=== PATIENT | female | born 1955 | race Caucasian/White ===

== ENCOUNTER 2020-01-29 07:20 | Outpatient (CLI) | payer MEDICARE, SELFPAY ==
--- NOTE | 2020-02-05 11:19 | WPDPFTINT ---
PFT Interpretation PFT Interpretation: This PFT met all criteria for ATS standards and reproducibility FEV/FVC 67% FEV1 89% FVC 96% No bronchodilator challenge was given TLC 124% RV 136% RV/TLC 43% DLCO 51% when adjusted for alveolar volume but not adjusted for hemoglobin Flow volume loops showed appeared normal Impression: Interpretability is limited due to lack of bronchodilator challenge. Mild airflow obstruction with hyperinflation, air trapping and moderately reduced diffusion capacity. This pattern is suggestive of COPD. Clinical correlation is advised.
== END 2020-01-29 07:21 | disposition home or self-care (01) ==
PROVIDERS: PCP Family Medicine; Visit Provider Internal Medicine Cardiovascular Disease
DX: R06.00 Dyspnea, unspecified (principal); Z72.0 Tobacco use
CPT/HCPCS: 94375; 94726; 94729

== ENCOUNTER → 2020-03-10 08:58 | Outpatient (CLI) | payer MEDICARE, SELFPAY ==
--- NOTE | ~2020-03-10 | XR_ITS ---
EXAMINATION: XR abdomen/kub 1V DATE: 03/10/2020 09:23 INDICATION: Hematuria. TECHNIQUE: A supine view of the abdomen on 2 radiographs was obtained. COMPARISON: CT abdomen and pelvis 03/10/2020 FINDINGS: There are no dilated loops of bowel. There are phleboliths in the pelvis. IMPRESSION: 1. No urolithiasis. Reviewed, dictated and finalized at location B. 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 No urolithiasis.
--- NOTE | ~2020-03-10 | CT_ITS ---
EXAMINATION: CT abdomen pelvis wo/w con DATE: 03/10/2020 10:01 INDICATION: Microscopic hematuria. TECHNIQUE: Computed tomography (CT) of the abdomen and pelvis was performed without and with intraven ous contrast using a total of 130 mL Omnipaque-350 intravenous contrast with a double-bolus technique for simultaneous opacification of the renal parenchyma and renal collecting system. Automated exposu re control and iterative reconstruction technique were employed. The dose-length product was 1147.97 mGy-cm. COMPARISON: None FINDINGS: The visualized portions of the lung bases demonstrate mild atelectasis. No pleural effusion. The hear t size is normal. There are small calcifications of the pericardium. No pericardial effusion. The amisha er, gallbladder, spleen, pancreas, and adrenal glands are normal. There is a 6 mm cyst in right kidne y. There are cysts in left kidney measuring up to 7 mm. There is no urolithiasis. There is partial du plication of right ureter, which is not well opacified distally, but is normal. The left ureter is no t well opacified proximally, but is normal. The bladder is normal. There is diverticulosis of the col on without evidence of diverticulitis. There are no dilated loops of bowel. There are no pathological ly enlarged lymph nodes. There is no free intraperitoneal fluid. There is severe thoracic spondylosis and mild lumbar spondylosis. Thoracolumbar levoscoliosis is noted. IMPRESSION: 1. No etiology for hematuria. Reviewed, dictated and finalized at location B. 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
[2020-03-10 09:37] LABS: Estimated Glomerular Filt Rate > 60
== END ==
PROVIDERS: PCP Family Medicine; Visit Provider Urology
DX: R31.29 Other microscopic hematuria (principal)
CPT/HCPCS: 74018; 74178; Q9967

== ENCOUNTER 2020-05-10 07:54 | Outpatient (CLI) | payer MEDICARE, SELFPAY ==
[2020-05-10 08:50] VITALS: PULSE 84; O2SAT 99
[2020-05-10 08:52] VITALS: PULSE 101; O2SAT 97
[2020-05-10 08:53] VITALS: PULSE 106; O2SAT 96
[2020-05-10 08:54] VITALS: PULSE 112; O2SAT 95
[2020-05-10 08:55] VITALS: PULSE 107; O2SAT 93
--- NOTE | 2020-05-10 09:01 | HOMEO2EVAL ---
Home Oxygen Evaluation RC: Home Oxygen (O2) Evaluation Start: 05/10/20 08:57 Freq: Status: Active Protocol: RPE Activity Type Activity Date Activity User E-Sign Co-Sign Detail Recorded Client Recorded Date Recorded By Document 05/10/20 08:50 KRM [id number] 05/10/20 09:01 KRM Document 05/10/20 08:52 KRM [email or web address] 05/10/20 09:01 KRM Document 05/10/20 08:53 KRM [email or web address] 05/10/20 09:01 KRM Document 05/10/20 08:54 KRM [email or web address] 05/10/20 09:01 KRM Document 05/10/20 08:55 KRM [email or web address] 05/10/20 09:01 KRM 05/10/20 05/10/20 05/10/20 08:50 08:52 08:53 Home O2 Evaluation Test Phase Resting Exercise Exercise Oxygen Delivery Room Air Room Air Room Air Pulse Oximetry (90-100 %) 99 97 96 Pulse Rate (60-100 beats/min) 84 101 H 106 H Activity Tolerance Good Good Ambulation Distance (feet) Treatment Charges O2 Evaluation - Outpatient 05/10/20 05/10/20 08:54 08:55 Home O2 Evaluation Test Phase Exercise Exercise Oxygen Delivery Room Air Room Air Pulse Oximetry (90-100 %) 95 93 Pulse Rate (60-100 beats/min) 112 H 107 H Activity Tolerance Good Good Ambulation Distance (feet) 600 Treatment Charges
== END 2020-05-10 07:55 | disposition home or self-care (01) ==
PROVIDERS: PCP Family Medicine; Visit Provider Internal Medicine Pulmonary Disease
DX: J44.9 Chronic obstructive pulmonary disease, unspecified (principal)
CPT/HCPCS: 94618

== ENCOUNTER 2020-05-18 09:26 | Outpatient (CLI) | payer MEDICARE, SELFPAY ==
--- NOTE | ~2020-05-18 | CT_ITS ---
EXAMINATION: CT lung screening DATE: 05/18/2020 09:40 INDICATION: Personal history of nicotine dependence TECHNIQUE: Computed tomography (CT) of the chest was performed without intravenous contrast. The dose -length product was 82.83 mGy-cm. Automated exposure control and iterative reconstruction technique w ere employed. COMPARISON: No prior studies for comparison. FINDINGS: There is atherosclerosis of the aorta and coronary arteries. No significant pleural or jazlyn cardial effusion. No thoracic lymphadenopathy. Heart size is normal. Upper abdomen is unremarkable. C alcified granuloma left upper lung zone. Calcified granuloma right lower lobe. No focal airspace cons olidation. No pneumothorax. There is a 2 mm right upper lobe nodule, image 33. There is a 3 mm left u pper lobe nodule. IMPRESSION: 1. Lung-RADS category 2: Benign appearance or behavior. Continue annual screening with noncontrast lo w-dose chest CT in 12 months. Reviewed, dictated and finalized at location B. IMPRESSION: 1. Lung-RADS category 2: Benign appearance or behavior. Continue annual screeni ng with noncontrast low-dose chest CT in 12 months.
== END 2020-05-18 09:27 | disposition home or self-care (01) ==
PROVIDERS: PCP Family Medicine; Visit Provider Internal Medicine Pulmonary Disease
DX: Z12.2 Encounter for screening for malignant neoplasm of respiratory organs (principal); Z87.891 Personal history of nicotine dependence
CPT/HCPCS: 71271

== ENCOUNTER 2020-10-08 07:23 | Outpatient (CLI) | payer MEDICARE, SELFPAY ==
--- NOTE | 2020-11-03 12:59 | WPDHOMESLEEP ---
Sleep Study - Home Unattended Date of Study: 10/08/20 Ordering Provider: Gale Quintana MD Interpreting Provider: Gale Quintana MD Home Sleep Study Type: Apnea Link Air Height: 1.57 m Weight: 56.699 kg Body Mass Index: 22.8 Neck Circumference (inches): 13.5 [place]: 5 Reason for Sleep Study Difficulty falling asleep, multiple nighttime awakenings Sleep History Marva Bingham is a 65-year-old female who rarely awakens from sleep feeling short of breath. She rarely awakens at night with heartburn, belching or coughing. She frequently snores occasionally loudly enough that others complain about it. She constantly has trouble sleeping with a cold. She rarely wakes up gasping for breath at night. She occasionally has breathing problems at night observed by others. She occasionally sweats excessively at night and notices her heart pounding irregularly at night. She occasionally falls asleep during the day, never involuntarily never while driving. She does not have loss of muscle tone with strong emotion. She does not have daytime difficulties due to excessive sleepiness. She does not feel paralyzed on waking or falling asleep. She occasionally has vivid dreamlike scenes upon awakening or falling asleep. She never is afraid to go to sleep. She occasionally has nightmares, occasionally remembers her dreams. She frequently has racing thoughts. She does not feel sad depressed or anxious. She occasionally has muscular tension. She occasionally notices parts of her body jerking and she occasionally kicks at night. She occasionally has crawling and aching feelings in her legs. She occasionally has leg pain at night. She does not have morning jaw pain. She rarely grinds her teeth during sleep. She constantly is bothered by pain during the day, frequently wakes up for pain during the night. She frequently wakes up feeling stiff in the morning with sore achy muscles and pain in the neck and spine. She has fatigue. Normal bedtime is 10:00 p.m. taking at least 1 hour to fall asleep typically waking 4 times at night to use the bathroom and get a drink of water. She stays up because is difficult for her to fall asleep again. She wakes up 4 times during the night. Her morning wake up time is between 4:30 a.m. and 5:00 a.m.. On the weekends she goes to bed also at 10:00 p.m. but wakes between 6:00 a.m. and 7:00 a.m.. She tries to take naps during the afternoon or evening. A short nap may be refreshing. She is drowsy in the morning for 3 hours or longer. She feels better in the morning compared to other times of day. Habits: Tobacco 1 pack per day. Caffeine 1 cup a day. She drinks tea. No alcohol. No recreational drugs. [facility] Past Medical History Medical History Atrial fibrillation Bilateral plantar fasciitis Hair loss (~11/2017) Mitral valve stenosis Mitral valve stenosis and aortic valve insufficiency MVP (mitral valve prolapse) OAB (overactive bladder) Psoriasis Psoriatic arthritis Stroke (~2013) Vitamin D deficiency Surgical History Surgical History History of 1979 History of cardiac cath (~2014) History of tonsillectomy Hx of atrioventricular ben ablation 2014 Hx of mitral valve repair 1979 Family History Family History Father Carcinoma of colon Malignant neoplasm of prostate Social History Social History Smoking packs per day: 1 Smoking cigarettes per day: 20.0 Years smoked: 36 Smoking pack-years: 36.00 Smoking status: Current every day smoker Tobacco type: cigarettes Additional smoking assessment comments: consumes 1 pack of cigarettes daily Alcohol intake: never Substance use: never Substance use type: does not use Gender identity (if verbalize
[2020-11-03 14:57] VITALS: BMI 22.8
== END 2020-10-12 11:50 | disposition home or self-care (01) ==
LOC: ANHCSM 07:23
PROVIDERS: PCP Family Medicine; Visit Provider Internal Medicine Critical Care Medicine
DX: G47.33 Obstructive sleep apnea (adult) (pediatric) (principal)
CPT/HCPCS: 95806

== ENCOUNTER → 2020-12-04 07:43 | Outpatient (CLI) | payer MEDICARE, SELFPAY ==
--- NOTE | ~2020-12-04 | MR_ITS ---
EXAMINATION: MR cervical spine wo con DATE: 12/04/2020 08:29 INDICATION: Neck pain. TECHNIQUE: Magnetic resonance imaging (MRI) of the cervical spine was performed without intravenous c ontrast. Sequences included sagittal T2-weighted FSE, sagittal STIR FSE, sagittal T1-weighted FSE, ax ial MERGE, and axial T2-weighted FSE. COMPARISON: None FINDINGS: There is 2 mm retrolisthesis of C4 on C5 and C5 on C6. Vertebral body heights are normal. T here is mildly decreased disc height at C3-C4 and severely decreased disc height at C4-C5, C5-C6, and C6-C7. The spinal cord signal intensity is normal. The following disc levels are specifically discus sed: C2-C3: The disc does not extend beyond the endplate margin. There is no uncovertebral joint osteoarth ritis. There is mild bilateral facet joint osteoarthritis. There is no neural foraminal stenosis. The re is no central canal stenosis. C3-C4: The disc is bulging. There is mild bilateral uncovertebral joint osteoarthritis. There is no f acet joint osteoarthritis. There is mild bilateral neural foraminal stenosis. There is mild central c anal stenosis with ventral indentation of the spinal cord. C4-C5: The disc is bulging. There is severe bilateral uncovertebral joint osteoarthritis. There is no facet joint osteoarthritis. There is moderate right and mild left neural foraminal stenosis. There i s mild central canal stenosis with ventral indentation of the spinal cord. C5-C6: The disc is bulging. There is severe bilateral uncovertebral joint osteoarthritis. There is mi ld right and moderate left facet joint osteoarthritis. There is mild right and moderate left neural f oraminal stenosis. There is mild central canal stenosis. C6-C7: The disc is bulging. There is severe bilateral uncovertebral joint osteoarthritis. There is no facet joint osteoarthritis. There is mild bilateral neural foraminal stenosis. There is mild central canal stenosis. C7-T1: The disc does not extend beyond the endplate margin. There is no uncovertebral joint osteoarth ritis. There is mild bilateral facet joint osteoarthritis. There is no neural foraminal stenosis. The re is no central canal stenosis. IMPRESSION: 1. Severe cervical spondylosis. Reviewed, dictated and finalized at location A.
== END ==
PROVIDERS: PCP Family Medicine; Visit Provider Family Medicine
DX: M47.892 Other spondylosis, cervical region (principal)
CPT/HCPCS: 72141

== ENCOUNTER → 2021-04-08 04:16 | Outpatient (CLI) | payer MEDICARE, SELFPAY ==
[2021-04-08 12:06] LABS: SARS-CoV-2 RNA PCR Negative
== END ==
PROVIDERS: PCP Student in an Organized Health Care Education/Training Program; Visit Provider Internal Medicine Critical Care Medicine
DX: Z01.812 Encounter for preprocedural laboratory examination (principal); Z20.822 Contact with and (suspected) exposure to COVID-19
CPT/HCPCS: C9803; U0003; U0005

== ENCOUNTER 2021-04-11 07:39 | Outpatient (CLI) | payer MEDICARE, SELFPAY ==
--- NOTE | 2021-04-21 13:11 | WPDSLEEPSTUD ---
Sleep Study Date of Study: 04/11/21 Ordering Provider: Austin Lomeli APRN Interpreting Physician: Zeny Ballesteros DO Sleep Study Type: CPAP Titration Height: 1.57 m Weight: 55.338 kg Body Mass Index: 22.3 Neck Circumference (inches): 13.5 [place]: 3 Reason for Sleep Study The patient had a home sleep test on October 08, 2020 that showed an AHI of 12.3. 37% of the apneas were central. She had 3% of the study showing probable Grant-Regan respirations. Sleep History Marva Bingham is a 65-year-old female who rarely awakens from sleep feeling short of breath. She rarely awakens at night with heartburn, belching or coughing. She frequently snores occasionally loudly enough that others complain about it. She constantly has trouble sleeping with a cold. She rarely wakes up gasping for breath at night. She occasionally has breathing problems at night observed by others. She occasionally sweats excessively at night and notices her heart pounding irregularly at night. She occasionally falls asleep during the day, never involuntarily never while driving. She does not have loss of muscle tone with strong emotion. She does not have daytime difficulties due to excessive sleepiness. She does not feel paralyzed on waking or falling asleep. She occasionally has vivid dreamlike scenes upon awakening or falling asleep. She never is afraid to go to sleep. She occasionally has nightmares, occasionally remembers her dreams. She frequently has racing thoughts. She does not feel sad depressed or anxious. She occasionally has muscular tension. She occasionally notices parts of her body jerking and she occasionally kicks at night. She occasionally has crawling and aching feelings in her legs. She occasionally has leg pain at night. She does not have morning jaw pain. She rarely grinds her teeth during sleep. She constantly is bothered by pain during the day, frequently wakes up for pain during the night. She frequently wakes up feeling stiff in the morning with sore achy muscles and pain in the neck and spine. She has fatigue. Normal bedtime is 10:00 p.m. taking at least 1 hour to fall asleep typically waking 4 times at night to use the bathroom and get a drink of water. She stays up because is difficult for her to fall asleep again. She wakes up 4 times during the night. Her morning wake up time is between 4:30 a.m. and 5:00 a.m.. On the weekends she goes to bed also at 10:00 p.m. but wakes between 6:00 a.m. and 7:00 a.m.. She tries to take naps during the afternoon or evening. A short nap may be refreshing. She is drowsy in the morning for 3 hours or longer. She feels better in the morning compared to other times of day. Habits: Tobacco 1 pack per day. Caffeine 1 cup a day. She drinks tea. No alcohol. No recreational drugs. [facility] Past Medical History Medical History Atrial fibrillation Bilateral plantar fasciitis Hair loss (~11/2017) History of COVID-19 10/2020 Mitral valve stenosis Mitral valve stenosis and aortic valve insufficiency MVP (mitral valve prolapse) OAB (overactive bladder) Psoriasis Psoriatic arthritis Stroke (~2013) Vitamin D deficiency Surgical History Surgical History History of 1977, 1979 History of cardiac cath (~2014) History of tonsillectomy Hx of atrioventricular ben ablation 2014 Hx of mitral valve repair 1979 Family History Family History Father Carcinoma of colon Malignant neoplasm of prostate Social History Social History Smoking packs per day: 1 Smoking cigarettes per day: 20.0 Years smoked: 36 Smoking pack-years: 36.00 Smoking status: Current every day smoker Tobacco type: cigarettes Additional smoking assessment comments: con
[2021-04-21 16:58] VITALS: BMI 22.3
--- NOTE | 2021-12-08 15:37 | SLEEP ---
PER [facility] FACE TO FACE NOTES NOT SENT THEREFORE PT NOT SET UP ON PAP THERAPY. SPOKE WITH JEANINE AT DR FELDMAN OFFICE SHE STATED SHE WAS CALLING [facility] AND SENDING ALL INFO TO [facility]. PT IS BEING SET UP 12/20 WITH PAP MACHINE
== END 2021-04-12 06:17 | disposition home or self-care (01) ==
LOC: ANHCSM 07:40
PROVIDERS: PCP Student in an Organized Health Care Education/Training Program; Visit Provider Nurse Practitioner Family
DX: G47.33 Obstructive sleep apnea (adult) (pediatric) (principal); G47.61 Periodic limb movement disorder
CPT/HCPCS: 95811

== ENCOUNTER → 2021-05-20 09:38 | Outpatient (CLI) | payer MEDICARE, SELFPAY ==
--- NOTE | ~2021-05-20 | CT_ITS ---
EXAMINATION:CT lung screening DATE: 05/20/2021 10:05 INDICATION: Personal history of nicotine dependence. Current smoker with 37 pack year history. TECHNIQUE: Computed tomography (CT) of the chest was performed without intravenous contrast. Automate d exposure control and iterative reconstruction technique were employed. The dose-length product (DLP ) was 81.34 mGy-cm. COMPARISON: Chest CT 05/18/2020 FINDINGS: There is stable mild scarring at the lung apices. There is a stable 3 mm nodule in left upp er lobe. A calcified left lung nodule is consistent with old granulomatous disease. There is mild ate lectasis bilaterally. No pleural effusion. There is left atrial enlargement of the heart. There are c oronary artery calcifications. No pericardial effusion. There is severe thoracic spondylosis. There i s dextroscoliosis of thoracic spine. IMPRESSION: 1. Lung-RADS category 2: Benign appearance or behavior. Continue annual screening with noncontrast lo w-dose chest CT in 12 months. Reviewed, dictated and finalized at location A. IMPRESSION: 1. Lung-RADS category 2: Benign appearance or behavior. Continue annual screeni ng with noncontrast low-dose chest CT in 12 months.
== END ==
PROVIDERS: PCP Student in an Organized Health Care Education/Training Program; Visit Provider Nurse Practitioner Family
DX: Z12.2 Encounter for screening for malignant neoplasm of respiratory organs (principal); Z87.891 Personal history of nicotine dependence
CPT/HCPCS: 71271

== ENCOUNTER → 2021-10-27 08:06 | Outpatient (CLI) | payer MEDICARE, SELFPAY ==
--- NOTE | ~2021-10-27 | XR_ITS ---
XR chest 2V DATE: 10/27/2021 08:15 INDICATION: Cough, shortness of breath. History of COPD. TECHNIQUE: 10/27/2021 2 view chest COMPARISON: 05/20/2021 CT lung screening FINDINGS: Status post sternotomy. Heart size is within normal limits. No hilar or mediastinal enlarge ment. There is bilateral hyperinflation. Minimal atelectasis or scarring at the left lung base, left lower lobe. Otherwise no pulmonary infiltrate or consolidation. No pleural effusion or pulmonary vascular c ongestion or pneumothorax. Osteopenia. Dextroscoliosis and degenerative spurring of the thoracic spine. IMPRESSION: Minimal atelectasis or scarring at the left lower lob Bilateral hyperinflation consistent with history of COPD Status post sternotomy Reviewed, dictated and finalized at location A.
== END ==
PROVIDERS: PCP Student in an Organized Health Care Education/Training Program; Visit Provider Physician Assistant
DX: R05.9 Cough, unspecified (principal); R06.02 Shortness of breath; R91.8 Other nonspecific abnormal finding of lung field
CPT/HCPCS: 71046

== ENCOUNTER 2021-12-12 12:56 | Outpatient (CLI) | payer MEDICARE, SELFPAY ==
[2021-12-12 14:38] LABS: SARS-CoV-2 RNA PCR Negative
== END 2021-12-12 12:57 | disposition home or self-care (01) ==
PROVIDERS: PCP Student in an Organized Health Care Education/Training Program; Visit Provider Internal Medicine Cardiovascular Disease
DX: R68.89 Other general symptoms and signs (principal); Z20.822 Contact with and (suspected) exposure to COVID-19
CPT/HCPCS: U0003; U0005

== ENCOUNTER 2024-11-27 08:38 | Outpatient (CLI) | payer MEDICARE, SELFPAY ==
--- NOTE | ~2024-11-27 | CT_ITS ---
EXAMINATION:CT lung screening DATE: 11/27/2024 08:54 INDICATION: Personal history of nicotine dependence. TECHNIQUE: Computed tomography (CT) of the chest was performed without intravenous contrast. Automated exposure control and iterative reconstruction technique were employed. The dose-length product (DLP) was 64.96 mGy-cm. COMPARISON: Chest CT 09/26/2023 FINDINGS: There is mild scarring at the lung apices. There is a 3 mm nodule in right upper lobe. There is mild emphysema. There is mild atelectasis bilaterally. No pleural effusion. Cardiomegaly is noted. There is an occlusion device in left atrial appendage. No pericardial effusion. There is cortical thinning of right kidney. Median sternotomy wires are noted. There is severe thoracic spondylosis. IMPRESSION: 1. Lung-RADS category 2: Benign appearance or behavior. Continue annual screening with noncontrast low-dose chest CT in 12 months. Reviewed, dictated and finalized at location E. IMPRESSION: 1. Lung-RADS category 2: Benign appearance or behavior. Continue annual screeni ng with noncontrast low-dose chest CT in 12 months.
== END 2024-11-27 08:39 | disposition home or self-care (01) ==
PROVIDERS: PCP Student in an Organized Health Care Education/Training Program; Visit Provider Student in an Organized Health Care Education/Training Program
DX: Z12.2 Encounter for screening for malignant neoplasm of respiratory organs (principal); Z87.891 Personal history of nicotine dependence
CPT/HCPCS: 71271